=== PATIENT | female | born 1945 | race Caucasian/White ===

== ENCOUNTER → 2019-04-19 | Outpatient (CLI) | payer MEDICARE, OTHER ==
[~2019-04-19] MED LIST: OMNIPAQUE 350 MG/ML, 100ML BOTTLE ONE
== END | disposition home or self-care (01) ==
LOC: CFH 14:36
PROVIDERS: ATTEND Psychiatry & Neurology Neurology
DX: G31.1 Senile degeneration of brain, not elsewhere classified (principal)
CPT/HCPCS: 70470; 82565; Q9967